=== PATIENT | female | born 1955 | race Two or more races ===

== ENCOUNTER → 2022-10-01 | Outpatient (CLI) | payer OTHER ==
[2022-10-01 09:37] LABS: Basophils # (auto) 0.1 10 ^3/uL (0-0.2); Basophils % (auto) 1.1 % (0.0-2.0); Eosinophils # (auto) 0.1 10 ^3/uL (0-0.8); Eosinophils % (auto) 1.9 % (0.0-7.0); Hematocrit 40.3 % (36.0-46.0); Hemoglobin 13.4 g/dL (12.2-16.2); Lymphocytes # (auto) 2.5 10 ^3/uL (0.4-5.4); Lymphocytes % (auto) 41.4 % (10.0-50.0); Mean Corpuscular Hemoglobin 30.1 pg (28.0-32.0); Mean Corpuscular Hgb Conc. 33.2 g/dL (32.0-36.0); Mean Corpuscular Volume 90.6 fL (80.0-100.0); Monocytes # (auto) 0.4 10 ^3/uL (0-1.3); Monocytes % (auto) 6.7 % (0.0-12.0); Neutrophils % (auto) 48.9 % (37.0-80.0); Nucleated Red Blood Cells % 0.2 %; Red Blood Cells 4.45 10^6/uL (4.0-5.20); White Blood Cell 6.1 10^3/uL (4.4-10.8)
[2022-10-01 10:03] LABS: Urine Bacteria NONE SEEN /hpf (None Seen); Urine Blood Negative /uL (Negative); Urine Specific Gravity 1.018 (1.001-1.035); Urine WBC 4 /hpf (0 - 5)
[2022-10-01 10:37] LABS: Potassium 4.1 mmol/L (3.5-5.1)
[2022-10-01 10:49] LABS: Albumin 3.9 g/dL (3.4-5.0); BUN/Creatinine Ratio 17.4; Bilirubin, Total 0.5 mg/dL (0.2-1.0); Calcium 9.4 mg/dL (8.5-10.1); Total Protein 7.6 g/dL (6.4-8.2)
== END | disposition home or self-care (01) ==
LOC: LAB 09:24
PROVIDERS: ATTEND Internal Medicine Hematology & Oncology
DX: I10 Essential (primary) hypertension (principal); E78.5 Hyperlipidemia, unspecified; E55.9 Vitamin D deficiency, unspecified; M19.90 Unspecified osteoarthritis, unspecified site
CPT/HCPCS: 36415; 80053; 80061; 81001; 84439; 84443; 85025

== ENCOUNTER → 2022-10-19 | Outpatient (CLI) | payer OTHER | END | disposition home or self-care (01) | LOC: LAB 13:30 | PROVIDERS: ATTEND Internal Medicine Hematology & Oncology | DX: I10 Essential (primary) hypertension (principal); E78.5 Hyperlipidemia, unspecified; E55.9 Vitamin D deficiency, unspecified; M19.90 Unspecified osteoarthritis, unspecified site | CPT/HCPCS: 82270 ==

== ENCOUNTER → 2023-09-06 | Outpatient (CLI) | payer OTHER ==
[2023-09-06 11:34] LABS: Basophils # (auto) 0 10 ^3/uL (0-0.2); Basophils % (auto) 0.5 % (0.0-2.0); Eosinophils # (auto) 0.1 10 ^3/uL (0-0.8); Eosinophils % (auto) 1.7 % (0.0-7.0); Hematocrit 40.5 % (36.0-46.0); Hemoglobin 13.4 g/dL (12.2-16.2); Lymphocytes # (auto) 2.8 10 ^3/uL (0.4-5.4); Lymphocytes % (auto) 46.3 % (10.0-50.0); Mean Corpuscular Hemoglobin 29.9 pg (28.0-32.0); Mean Corpuscular Hgb Conc. 33.1 g/dL (32.0-36.0); Mean Corpuscular Volume 90.3 fL (80.0-100.0); Monocytes # (auto) 0.4 10 ^3/uL (0-1.3); Monocytes % (auto) 5.9 % (0.0-12.0); Neutrophils # (auto) 2.7 10 ^3/uL (1.6-8.6); Neutrophils % (auto) 45.6 % (37.0-80.0); Nucleated Red Blood Cells % 0.1 %; Red Blood Cells 4.48 10^6/uL (4.0-5.20); Red Cell Distribution Width 13.8 % (11.8-14.3)
[2023-09-06 11:45] LABS: Urine Bacteria FEW /hpf (None Seen); Urine Blood Negative /uL (Negative); Urine Clarity Clear (Clear); Urine Color Yellow (Yellow); Urine Hyaline Cast FEW /lpf (0 - 2); Urine Mucus FEW (None Seen); Urine Protein, UAD Negative (Negative); Urine Specific Gravity 1.016 (1.001-1.035); Urine Urobilinogen Normal (Negative); Urine WBC 1 /hpf (0 - 5)
[2023-09-06 11:55] LABS: Alanine Aminotransferase 38 U/L (7-40); Albumin 4.7 g/dL (3.2-4.8); Alkaline Phosphatase 95 U/L (46-116); Anion Gap 7 (5-15); Aspartate Aminotransferase 24 U/L (13-40); BUN/Creatinine Ratio 11.5 (10.0-20.0); Bilirubin, Total 0.9 mg/dL (0.2-1.0); Blood Urea Nitrogen 10 mg/dL (9-23); Calcium 10.6 mg/dL (8.5-10.1); Carbon Dioxide 27 mmol/L (20-30); Chloride 109 mmol/L (98-107); Cholesterol 248 mg/dL (< 200); Glucose 116 mg/dL (74-106); HDL Cholesterol 108 mg/dL (40-59); LDL Cholesterol 91 mg/dL (< 100); Potassium 4.7 mmol/L (3.5-5.1); Sodium 143 mmol/L (136-145); Total Protein 7.5 g/dL (5.7-8.2); Triglycerides 102 mg/dL (< 150)
== END | disposition home or self-care (01) ==
LOC: LAB 11:05
PROVIDERS: ATTEND Nurse Practitioner
DX: I10 Essential (primary) hypertension (principal); E78.5 Hyperlipidemia, unspecified
CPT/HCPCS: 36415; 80053; 80061; 81001; 83036; 84443; 85025

== ENCOUNTER → 2024-03-20 | Outpatient (CLI) | payer OTHER ==
[2024-03-20 10:36] LABS: Alanine Aminotransferase 51 U/L (7-40); Alkaline Phosphatase 96 U/L (46-116); Anion Gap 6 (5-15); BUN/Creatinine Ratio 11.3 (10.0-20.0); Blood Urea Nitrogen 11 mg/dL (9-23); Calcium 10.2 mg/dL (8.7-10.4); Carbon Dioxide 27 mmol/L (20-30); Chloride 109 mmol/L (98-107); Glucose 133 mg/dL (74-106); Potassium 4.5 mmol/L (3.5-5.1); Sodium 142 mmol/L (136-145); Triglycerides 174 mg/dL (< 150)
[2024-03-20 10:37] LABS: LDL Cholesterol 111 mg/dL (< 100)
[2024-03-20 10:38] LABS: Albumin 4.4 g/dL (3.2-4.8); Aspartate Aminotransferase 28 U/L (13-40); Bilirubin, Total 0.8 mg/dL (0.2-1.0); Cholesterol 248 mg/dL (< 200); HDL Cholesterol 81 mg/dL (40-59); Total Protein 6.7 g/dL (5.7-8.2)
== END | disposition home or self-care (01) ==
LOC: LAB 09:29
PROVIDERS: ATTEND Nurse Practitioner
DX: E78.5 Hyperlipidemia, unspecified (principal)
CPT/HCPCS: 36415; 80053; 80061

== ENCOUNTER → 2024-06-22 | Outpatient (CLI) | payer OTHER ==
[2024-06-22 10:52] LABS: Alanine Aminotransferase 43 U/L (7-40); Albumin 4.5 g/dL (3.2-4.8); Alkaline Phosphatase 94 U/L (46-116); Anion Gap 3 (5-15); Aspartate Aminotransferase 20 U/L (13-40); BUN/Creatinine Ratio 9.6 (10.0-20.0); Bilirubin, Total 0.6 mg/dL (0.2-1.0); Blood Urea Nitrogen 9 mg/dL (9-23); Calcium 10.2 mg/dL (8.7-10.4); Carbon Dioxide 29 mmol/L (20-31); Chloride 109 mmol/L (98-107); Cholesterol 224 mg/dL (< 200); Glucose 124 mg/dL (74-106); HDL Cholesterol 90 mg/dL (40-59); LDL Cholesterol 85 mg/dL (< 100); Potassium 4.1 mmol/L (3.5-5.1); Sodium 141 mmol/L (136-145); Total Protein 7.1 g/dL (5.7-8.2); Triglycerides 134 mg/dL (< 150)
== END | disposition home or self-care (01) ==
LOC: LAB 09:20
PROVIDERS: ATTEND Nurse Practitioner
DX: Z12.11 Encounter for screening for malignant neoplasm of colon (principal); R73.9 Hyperglycemia, unspecified; E78.5 Hyperlipidemia, unspecified
CPT/HCPCS: 36415; 80053; 80061; 82270; 83036

== ENCOUNTER → 2024-10-12 | Outpatient (CLI) | payer OTHER ==
[2024-10-12 10:08] LABS: Urine Bacteria None Seen /hpf (None Seen)
[2024-10-12 10:17] LABS: Basophils # (auto) 0.1 10 ^3/uL (0-0.2); Basophils % (auto) 1.2 % (0.0-2.0); Eosinophils # (auto) 0.1 10 ^3/uL (0-0.8); Eosinophils % (auto) 2.5 % (0.0-7.0); Hematocrit 39.6 % (36.0-46.0); Hemoglobin 13.2 g/dL (12.2-16.2); Lymphocytes # (auto) 2.2 10 ^3/uL (0.4-5.4); Lymphocytes % (auto) 39.5 % (10.0-50.0); Mean Corpuscular Hemoglobin 29.7 pg (28.0-32.0); Mean Corpuscular Hgb Conc. 33.3 g/dL (32.0-36.0); Mean Corpuscular Volume 89.3 fL (80.0-100.0); Monocytes # (auto) 0.3 10 ^3/uL (0-1.3); Monocytes % (auto) 6.3 % (0.0-12.0); Neutrophils # (auto) 2.7 10 ^3/uL (1.6-8.6); Neutrophils % (auto) 50.5 % (37.0-80.0); Nucleated Red Blood Cells % 0.1 %; Platelet Count (auto) 215 10^3/uL (140-450); Red Blood Cells 4.43 10^6/uL (4.0-5.20); Red Cell Distribution Width 13.4 % (11.8-14.3); Urine Blood Negative /uL (Negative); Urine Clarity Clear (Clear); Urine Color Light-Yellow (Yellow); Urine Protein, UAD Negative (Negative); Urine Specific Gravity 1.015 (1.001-1.035); Urine Squamous Epithelial Cell FEW /hpf (<5); Urine Urobilinogen Normal (Negative); Urine WBC 2 /HPF (0-5); White Blood Cell 5.4 10^3/uL (4.4-10.8)
[2024-10-12 12:26] LABS: Chloride 106 mmol/L (98-107); Potassium 4.4 mmol/L (3.5-5.1); Sodium 141 mmol/L (136-145); Triglycerides 102 mg/dL (< 150)
[2024-10-12 12:32] LABS: Anion Gap 8 (5-15)
[2024-10-12 12:34] LABS: Carbon Dioxide 27 mmol/L (20-31)
[2024-10-12 12:35] LABS: Alanine Aminotransferase 41 U/L (7-40); Albumin 4.6 g/dL (3.2-4.8); Alkaline Phosphatase 101 U/L (46-116); Aspartate Aminotransferase 19 U/L (13-40); Bilirubin, Total 0.5 mg/dL (0.2-1.0); Blood Urea Nitrogen 15 mg/dL (9-23); Calcium 10.1 mg/dL (8.7-10.4); Cholesterol 218 mg/dL (< 200); Glucose 115 mg/dL (74-106); HDL Cholesterol 79 mg/dL (40-59); LDL Cholesterol 94 mg/dL (< 100); Total Protein 6.9 g/dL (5.7-8.2)
== END | disposition home or self-care (01) ==
LOC: LAB 09:55
PROVIDERS: ATTEND Nurse Practitioner
DX: Z12.11 Encounter for screening for malignant neoplasm of colon (principal); I10 Essential (primary) hypertension; E78.5 Hyperlipidemia, unspecified; R73.9 Hyperglycemia, unspecified
CPT/HCPCS: 36415; 80053; 80061; 81001; 83036; 84443; 85025

== ENCOUNTER → 2024-10-23 | Outpatient (CLI) | payer OTHER | END | disposition home or self-care (01) | LOC: LAB 10:13 | PROVIDERS: ATTEND Nurse Practitioner | DX: Z12.11 Encounter for screening for malignant neoplasm of colon (principal); I10 Essential (primary) hypertension; E78.5 Hyperlipidemia, unspecified; R73.9 Hyperglycemia, unspecified | CPT/HCPCS: 82274 ==

== ENCOUNTER → 2025-02-09 | Outpatient (CLI) | payer OTHER ==
--- NOTE | 2025-02-09 12:58 | DVH ---
US US GUIDANCE FOR NEEDLE PLACEME, HISTORY: BREAST LUMP PROCEDURE: Informed consent was obtained. The patient was positioned supine on the table, and limited US was performed of the left breast. The skin overlying the biopsy site was prepped with chlorhexid ine which was allowed to dry. Time out was performed. The entry site was anesthetized with 1% lidocai ne. A 18 gauge Biopince needle was advanced into the mass. Multiple core biopsy samples were obtained using the 18 gauge biopsy needle. The samples were sent to formalin to pathology for analysis. A mar ker clip was deployed in the mass. Imaging through the biopsy site was performed. No immediate compli cation was identified. FINDINGS: Left breast mass at 9 o clock. Intra-procedural images show the biopsy needle at the lesion . No significant post biopsy hemorrhage is identified. IMPRESSION: US-guided biopsy of left breast mass at 9 o clock . Pathology results pending.
== END | disposition home or self-care (01) ==
LOC: US 09:33
PROVIDERS: ATTEND Nurse Practitioner
DX: N60.32 Fibrosclerosis of left breast (principal); N63.20 Unspecified lump in the left breast, unspecified quadrant
CPT/HCPCS: 19083; 76642; 88305; A4648; 76942

== ENCOUNTER → 2025-02-22 | Outpatient (CLI) | payer OTHER ==
[2025-02-22 07:59] LABS: Hematocrit 38.2 % (36.0-46.0); Hemoglobin 13.1 g/dL (12.2-16.2); Mean Corpuscular Hemoglobin 30.4 pg (28.0-32.0); Mean Corpuscular Volume 88.3 fL (80.0-100.0); Nucleated Red Blood Cells % 0.3 %
[2025-02-22 08:47] LABS: Alanine Aminotransferase 36 U/L (7-40); Alkaline Phosphatase 101 U/L (46-116); Anion Gap 10 (5-15); BUN/Creatinine Ratio 14.4 (10.0-20.0); Blood Urea Nitrogen 14 mg/dL (9-23); Carbon Dioxide 27 mmol/L (20-31)
[2025-02-22 08:48] LABS: Total Protein 7.3 g/dL (5.7-8.2)
[2025-02-22 08:49] LABS: Bilirubin, Total 0.5 mg/dL (0.2-1.0)
[2025-02-22 08:51] LABS: Albumin 4.9 g/dL (3.2-4.8); Calcium 10.6 mg/dL (8.7-10.4); Chloride 109 mmol/L (98-107); Glucose 112 mg/dL (74-106); Potassium 5.1 mmol/L (3.5-5.1); Sodium 146 mmol/L (136-145)
== END | disposition home or self-care (01) ==
LOC: LAB 07:43
PROVIDERS: ATTEND Nurse Practitioner
DX: R73.9 Hyperglycemia, unspecified (principal)
CPT/HCPCS: 36415; 80053; 83036; 85025